=== PATIENT | female | born 1980 | race Caucasian/White ===

== ENCOUNTER → 2016-10-02 | Emergency (ER) | payer OTHER ==
--- NOTE | 2016-10-02 21:07 | ED MED RECONCILIATION SUMMARY ---
Patient: CUBA BRINK Medication Reconciliation Report VisitID: [id number] [address] [place] [address] 36y, F Registration Date/Time: 10/02/2016 Weight: (not available) Height/Length: (not available) BMI: (not available) ALLERGIES: The patient's Home Medications are listed below: Not obtained. The source(s) of the original Home Medication information: Not obtained. The following Medications were given to the patient in the Emergency Department: None. The following Medications were prescribed to the patient: None.
--- NOTE | 2016-10-02 21:07 | ED MAR SUMMARY ---
..... Medication Administration Record [facility] [address] [place] [id number] Patient: CUBA BRINK Visit ID: [id number] 36y, F Weight: (not available) Height/Length: (not available) BMI: (not available) ALLERGIES:
--- NOTE | 2016-10-02 21:07 | ED NURSING NOTES ---
Clinical Report - Nurses [place] [address] [place] [address] 10/02/2016 20:12 Patient: CUBA BRINK DISPOSITION / DISCHARGE The patient left the Emergency Department before triage; (notified registration staff). She notified the ED staff prior to leaving the department and stated is leaving the ED to go to their primary care physician. She left the Emergency Department ambulatory and via private vehicle. --21:07 Mavis Bonner R.N. Locked/Released at 10/02/2016 21:07 by Mavis Bonner R.N.
--- NOTE | 2016-10-02 21:07 | ED NURSING NOTES ---
Clinical Report - Nurses [place] [address] [place] [address] 10/02/2016 20:12 Patient: CUBA BRINK DISPOSITION / DISCHARGE The patient left the Emergency Department before triage; (notified registration staff). She notified the ED staff prior to leaving the department and stated is leaving the ED to go to their primary care physician. She left the Emergency Department ambulatory and via private vehicle. --21:07 Mavis Bonner R.N. Locked/Released at 10/02/2016 21:07 by Mavis Bonner R.N.
--- NOTE | 2016-10-02 21:07 | ED MED RECONCILIATION SUMMARY ---
Patient: CUBA BRINK Medication Reconciliation Report [facility] VisitID: [id number] [address] [place] [address] 36y, F Registration Date/Time: 10/02/2016 Weight: (not available) Height/Length: (not available) BMI: (not available) ALLERGIES: The patient's Home Medications are listed below: Not obtained. The source(s) of the original Home Medication information: Not obtained. The following Medications were given to the patient in the Emergency Department: None. The following Medications were prescribed to the patient: None.
--- NOTE | 2016-10-02 21:07 | ED MAR SUMMARY ---
..... Medication Administration Record [facility] [address] [place], [place] [id number] Patient: CUBA BRINK Visit ID: [id number] 36y, F Weight: (not available) Height/Length: (not available) BMI: (not available) ALLERGIES:
== END ==
LOC: ED SRH 20:10
DX: Z53.21 Procedure and treatment not carried out due to patient leaving prior to being seen by health care provider (principal)